=== PATIENT | female | born 1965 | race Caucasian/White ===

== ENCOUNTER 2017-12-14 12:51 | Emergency (ER) | payer MEDICAID ==
[2017-12-14 13:01] VITALS: BP 125/56; BMI 27.4
--- NOTE | 2017-12-14 13:42 | DR.GENAD ---
HPI - PCP Primary Care Physician: nayeli - Complaint/Symptoms Chief Complaint Doctors Comments: Hernia popped out 2 days ago. This has been recurrent for a few months. NOt discussed with PCP yet. She has no nausea or vommiting. The location of pain and presumed hernia is on either side of midline in upper abdomen. Chief Complaint:: "burning herina that has popped out" - Nurses notes reviewed Nurses Notes Review: Yes - Source History Provided: Patient - Mode of Arrival Mode of Arrival: Ambulatory - Timing Onset of Chief Complaint: 12/07/17 PMH - PMH Past Medical History: Yes Past Medical History: Hypertension Past Medical History Comment: hernia Past Surgical History: Yes Past Surgical History Comment: back surgery, tubal, abomen surgery - Family History History of Family Medical Conditions: Yes Family Medical History: Diabetes Mellitus, Cancer, Heart Failure, Hypertension - Social History Does patient currently use any type of tobacco product: Yes Have you used tobacco products in the last 12 months: Yes Type of Tobacco Use: Cigarettes How many years tobacco product used: 30 Does any household member use tobacco: No Alcohol Use: None Do you use any recreational Drugs:: No Lives With: Family Lives Where: Home - infectious screening In the last 2 months have you had wt loss of >10#?: NO Have you had fever, night sweats or hemotysis?: No Have you traveled outside the country in the last 6 months?: No Isolation: Standard ROS - Review of Systems Constitutional: No Symptoms Reported Eyes: No Symptoms Reported ENTM: No Symptoms Reported Respiratoy: No Symptoms Reported Cardiovascular: No Symptoms Reported Gastrointestinal/Abdominal: Abdominal Pain (epigastric) Neurological: No Symptoms Reported Musculoskeletal: No Symptoms Reported Integumentary: No Symptoms Reported Hematologic/Lymphatic: No Symptoms Reported Endocrine: No Symptoms Reported Psychiatric: No Symptoms Reported PE - Vital Signs Vitals: Temperature 98.5 F Pulse Rate 88 Respiratory Rate 18 Blood Pressure 125/56 O2 Sat by Pulse Oximetry 99 - General Limitations: No Limitations General Appearance: Alert, In No Apparent Distress - Head Head Exam: Normal Inspection - Eyes Eye exam: Normal Appearance - ENT ENT Exam: Normal Exam - Neck Neck Exam: Normal Inspection - Chest Chest Inspection: Normal Inspection - Respiratory Respiratory Exam: Normal Lung Sounds Bilat - Cardiovascular Cardiovascular Exam: Regular Rate, Normal Rhythm, +S1, +S2 - Abdominal Exam Abdominal Exam: Normal Inspection, Normal Bowel Sounds, Soft - Extremities Extremities Exam: Normal Inspection - Back Back Exam: Normal Inspection - Neurologic Neurological Exam: Alert, Oriented X3 - Psychiatric Psychiatric Exam: Normal Affect, Normal Mood - Skin Skin Exam: Warm, Dry, Intact, Normal Color Course - Reevaluation 1st: Improved 2nd: Resolved - Education/Counseling Education/Counseling: Patient, Family, Education, Counseling Educated On: Treatment, Diagnosis, Prognosis, Needs for Follow Up ROR - XRAY XRAY Interpreted by: Radiologist (chronic liver changes, a 7mm hypodnesity in the left lobe medially. borderline spleenomegaly. discoid atelectasisor scarring along the rt. lung base.) - Diagnosis Discharge Problem: Abdominal wall pain in both upper quadrants - Discharge Plan Disposition: 01 HOME, SELF-CARE Condition: Stable - Follow ups/Referrals Follow ups/Referrals: JESUS ALBERTO HUIZAR [Primary Care Provider] - 3 days - Instructions Instructions: Abdominal Pain, Adult, [id number]
--- NOTE | 2017-12-14 14:16 | CT ---
Indication: Painful hernia Exam: CT abdomen without contrast. Comparison: None. Technique: Axial spiral images were obtained from lung bases through the iliac crests without contras t. Automated dose control was utilized. Findings: There are mild linear densities scattered along the right lung base. There is mild hypertro phy of the caudate and left lobes of the liver. There is a 7 mm hypodensity in the left lobe medially . The gallbladder has been removed with clips in the gallbladder fossa. The common duct is mildly dil ated proximally and tapers distally with no filling defect. The spleen measures 12 cm in length and i s normal density. The pancreas and adrenals are normal. The kidneys are normal size with no hydroneph rosis, renal stone, or mass. The ureters are normal caliber. There are diverticula throughout the lef t colon with no pericolonic inflammation. There is a surgical incision along the midline of the lower abdomen with questionable surgical mesh material along anterior abdominal wall with no abdominal wal l hernia identified. The mesentery is unremarkable. No retroperitoneal mass or adenopathy is seen. Th e bones are intact. Impression: Mild chronic liver changes with a 7 mm hypodensity in the left lobe medially which may represent a cy st but is too small to characterize Status post cholecystectomy with no acute abnormality seen. Borderline splenomegaly No hydronephrosis or renal stones. Abdominal wall incision with no abdominal wall hernia identified. Mild discoid atelectasis or scarring along the right lung base. Reported By:
== END 2017-12-14 14:57 | disposition home or self-care (01) ==
LOC: ER 13:05
DX: R10.84 Generalized abdominal pain (principal); Z90.49 Acquired absence of other specified parts of digestive tract; J98.11 Atelectasis
CPT/HCPCS: 74150; 99282; 99283